=== PATIENT | female | born 1970 | race Caucasian/White ===

== ENCOUNTER 2023-11-30 07:00 | Day surgery (SDC) | payer MEDICAID ==
[~2023-11-30] VITALS: Ht 160 cm; Wt 74.8 kg
[2023-11-30 07:51] LABS: HCG,QUAL RESULT NEGATIVE (NEGATIVE)
[2023-11-30] MEDS ORDERED: MEPERIDINE 100 MG INJ. 100 MG/ML VIAL ONE (07:51)
[2023-11-30] MEDS ORDERED: SIMETHICONE 40 MG/0.6 ML ML ONE (07:51)
[2023-11-30] MEDS ORDERED: MIDAZOLAM HCL 5 MG/5 ML VIAL ONE (07:52)
[2023-11-30 14:07] VITALS: TEMP 97.4; O2SAT 100
[2023-11-30 16:36] VITALS: BP_SYST 89; PULSE 65; RESP 12
== END 2023-11-30 11:15 | disposition home or self-care (01) ==
LOC: SDS 07:00
PROVIDERS: ATTEND Internal Medicine
DX: Z12.11 Encounter for screening for malignant neoplasm of colon (principal); D12.5 Benign neoplasm of sigmoid colon; K57.30 Diverticulosis of large intestine without perforation or abscess without bleeding; K64.8 Other hemorrhoids; E78.5 Hyperlipidemia, unspecified; Z90.49 Acquired absence of other specified parts of digestive tract; Z98.891 History of uterine scar from previous surgery; Z79.899 Other long term (current) drug therapy; Z80.0 Family history of malignant neoplasm of digestive organs
CPT/HCPCS: 99152; 84703; 45385; 88305; G0378; J2250; J2175; 45382; 45384